=== PATIENT | male | born 1930 | race Caucasian/White ===

== ENCOUNTER 2017-10-13 11:16 | Outpatient (CLI) | payer MEDICARE, OTHER | END 2017-10-13 11:17 | LOC: POD 11:16 | PROVIDERS: ATTEND Podiatrist Public Medicine | DX: B35.1 Tinea unguium (principal); L60.0 Ingrowing nail; M79.674 Pain in right toe(s); M79.675 Pain in left toe(s) | CPT/HCPCS: 11721; G0463 ==

== ENCOUNTER 2018-01-19 10:01 | Outpatient (CLI) | payer MEDICARE, OTHER | END 2018-01-19 10:03 | LOC: POD 10:01 | PROVIDERS: ATTEND Podiatrist Public Medicine | DX: B35.1 Tinea unguium (principal); L60.0 Ingrowing nail; M79.674 Pain in right toe(s); M79.675 Pain in left toe(s) | CPT/HCPCS: 11721; G0463 ==